=== PATIENT | female | born 1935 | race Caucasian/White ===

== ENCOUNTER 2017-08-29 09:46 | Inpatient (IN) | payer MEDICARE, OTHER ==
[~2017-08-29] VITALS: Ht 304.8 cm; Wt 53.1 kg
[2017-08-29] MEDS ORDERED: ipratropium/albuterol 3ml nebule NEB ONE (09:55)
[2017-08-29] MEDS ORDERED: methylPREDNISolone sod succ 125mg/2ml vial IV ONE (09:55)
[2017-08-29] MEDS ORDERED: CHOL2000 PO (10:19)
[2017-08-29] MEDS ORDERED: FURO-150 PO (10:19)
[2017-08-29] MEDS ORDERED: METO50TA16 PO (10:19)
[2017-08-29] MEDS ORDERED: LORA10TA7 PO (10:19)
[2017-08-29] MEDS ORDERED: lidocaine patch TOP (10:19)
[2017-08-29] MEDS ORDERED: POTA10CA44 PO (10:19)
[2017-08-29] MEDS ORDERED: OMEP40CA37 PO (10:19)
[2017-08-29] MEDS ORDERED: ASPI81TA52 PO (10:19)
[2017-08-29] MEDS ORDERED: NAPR-56 PO (10:19)
[2017-08-29] MEDS ORDERED: ACET650T11 PO (10:19)
[2017-08-29] MEDS ORDERED: ALEN70TA48 PO (10:19)
[2017-08-29] MEDS ORDERED: CALC-3 PO (10:19)
[2017-08-29] MEDS ORDERED: SYN0.088T PO (10:19)
[2017-08-29] MEDS ORDERED: [UNRECOGNIZED DRUG - CODE] (10:19)
[2017-08-29] MEDS ORDERED: GABA-530 PO (10:19)
[2017-08-29 10:22] LABS: BASOPHILS % (AUTO) 0.3 % (0-1); EOSINOPHILS % (AUTO) 0.5 % (0-6); HEMATOCRIT 34.9 % (35.0-45.0); LYMPHOCYTES # (AUTO) 1.6 X10'3 (1.1-4.8); LYMPHOCYTES % (AUTO) 17.8 % (21-51); MEAN CORPUSCULAR HEMOGLOBIN 29.6 PG (27.0-31.0); MEAN CORPUSCULAR HGB CONC 34.4 % (33.0-36.5); MEAN CORPUSCULAR VOLUME 86.1 FL (78-98); MEAN PLATELET VOLUME 6.7 FL (7.4-10.4); MONOCYTES # (AUTO) 1.1 X10'3 (0-0.9); MONOCYTES % (AUTO) 12.6 % (2-12); NEUTROPHILS # (AUTO) 6.2 X10'3 (1.8-7.7); NEUTROPHILS % (AUTO) 68.8 % (42-75); PLATELET COUNT 263 X10'3 (140-440); RED BLOOD COUNT 4.05 X10'6 (4.20-5.60); RED CELL DISTRIBUTION WIDTH 16.1 % (11.5-14.5)
[2017-08-29 10:36] LABS: PARTIAL THROMBOPLASTIN TIME 29 SECONDS (22-32); PROTHROMBIN TIME 10.5 SECONDS (9.0-12.0)
[2017-08-29 10:47] LABS: ALANINE AMINOTRANSFERASE 32 U/L (12-78); ALBUMIN 3.4 G/DL (3.4-5.0); ALBUMIN/GLOBULIN RATIO 0.9 (1.1-1.5); ALKALINE PHOSPHATASE 158 IU/L (46-116); ANION GAP 12 (8-16); ASPARTATE AMINO TRANSFERASE 34 U/L (10-37); BILIRUBIN,TOTAL 0.2 MG/DL (0.1-1.0); BLOOD UREA NITROGEN 14 MG/DL (7-18); BUN/CREATININE RATIO 17.7 (6.6-38.0); CALCIUM 8.7 MG/DL (8.5-10.1); CHLORIDE 106 MMOL/L (99-107); CREATININE 0.79 MG/DL (0.40-0.90); GLUCOSE 108 MG/DL (70-104); MAGNESIUM 1.8 MG/DL (1.5-2.4); POTASSIUM 3.4 MMOL/L (3.5-5.1); SODIUM 141 MMOL/L (135-145); TOTAL CARBON DIOXIDE 22.8 MMOL/L (24-32); TOTAL PROTEIN 7.4 G/DL (6.4-8.2); eGFR 70 ML/MIN
[2017-08-29] MEDS ORDERED: azithromycin/NS 500mg/250ml 250 ML IV ONE (10:50)
[2017-08-29] MEDS ORDERED: CefTRIAXone 2gm/D5W 50ml 50 ML IV ONE (10:50)
[2017-08-29] MEDS ORDERED: furosemide 10 MG/1 ML 10ml inj IV ONE (11:15)
[2017-08-29] MEDS ORDERED: magnesium hydroxide 30ml (MOM) UD suspension PO PRN (11:20)
[2017-08-29] MEDS ORDERED: magnesium Cl slow-release 64mg tablet PO PRN (11:20)
[2017-08-29] MEDS ORDERED: magnesium 4gm in 100ml NS 100 ML IV PRN (11:20)
[2017-08-29] MEDS: CefTRIAXone/D5W-Rocephin 1gm 50 ML IV SCH (11:20)
[2017-08-29] MEDS ORDERED: acetaminophen 325mg tablet PO PRN ×2 (11:20)
[2017-08-29] MEDS ORDERED: mag hydrox/Alum hydrox/simeth 30ml oral suspension PO PRN (11:20)
[2017-08-29] MEDS ORDERED: ipratropium/albuterol 3ml nebule NEB PRN (11:20)
[2017-08-29] MEDS ORDERED: potassium Cl 40MEQ/NS 500ml 500 ML IV PRN ×2 (11:20)
[2017-08-29] MEDS: K and/or MAG REPLACEMENT MC SCH (11:20)
[2017-08-29] MEDS ORDERED: potassium Cl 20 mEq SR tablet PO PRN (11:20)
[2017-08-29] MEDS ORDERED: magnesium 2GM in 50ml NS 50 ML IV PRN (11:20)
[2017-08-29] MEDS ORDERED: ondansetron/PF 4mg/2ml inj IV PRN (11:20)
[2017-08-29] MEDS: LIDOcaine 5% patch TP SCH (11:44)
[2017-08-29] MEDS: gabapentin 100mg capsule PO SCH ×2 (13:00→21:53)
[2017-08-29] MEDS: methylPREDNISolone sod succ 125mg/2ml vial IV SCH ×2 (13:51→21:51)
[2017-08-29] MEDS: ipratropium/albuterol 3ml nebule NEB SCH ×3 (15:20→23:00)
[2017-08-29] MEDS: metoprolol tartrate 50mg tablet PO SCH (17:20)
[2017-08-29 17:24] VITALS: BP 133/69
[2017-08-29 18:00] VITALS: BP 124/60
[2017-08-29] MEDS ORDERED: temazepam 15mg capsule PO PRN (21:00)
[2017-08-29] MEDS: furosemide 20 MG/2 ML vial IV SCH (21:51)
[2017-08-29] MEDS: potassium Cl 20 mEq SR tablet PO PRN (21:52)
[2017-08-29 22:00] VITALS: BP 130/65
[2017-08-30 02:00] VITALS: BP 131/70
[2017-08-30] MEDS: methylPREDNISolone sod succ 125mg/2ml vial IV SCH ×2 (02:58→07:51)
[2017-08-30] MEDS: potassium Cl 20 mEq SR tablet PO PRN (02:58)
[2017-08-30 05:19] LABS: BASOPHILS % (AUTO) 0.2 % (0-1); EOSINOPHILS % (AUTO) 0.7 % (0-6); HEMATOCRIT 33.8 % (35.0-45.0); HEMOGLOBIN 11.6 g/dl (12.0-16.0); LYMPHOCYTES # (AUTO) 0.6 X10'3 (1.1-4.8); LYMPHOCYTES % (AUTO) 8.6 % (21-51); MEAN CORPUSCULAR HEMOGLOBIN 30.1 PG (27.0-31.0); MEAN CORPUSCULAR HGB CONC 34.2 % (33.0-36.5); MEAN PLATELET VOLUME 6.9 FL (7.4-10.4); MONOCYTES # (AUTO) 0.2 X10'3 (0-0.9); MONOCYTES % (AUTO) 3.1 % (2-12); NEUTROPHILS # (AUTO) 5.7 X10'3 (1.8-7.7); NEUTROPHILS % (AUTO) 87.4 % (42-75); PLATELET COUNT 211 X10'3 (140-440); RED BLOOD COUNT 3.84 X10'6 (4.20-5.60); RED CELL DISTRIBUTION WIDTH 15.9 % (11.5-14.5); WHITE BLOOD COUNT 6.5 X10'3 (4.5-11.0)
[2017-08-30 05:42] LABS: ALANINE AMINOTRANSFERASE 32 U/L (12-78); ALBUMIN 3.1 G/DL (3.4-5.0); ALBUMIN/GLOBULIN RATIO 0.8 (1.1-1.5); ALKALINE PHOSPHATASE 145 IU/L (46-116); ANION GAP 9 (8-16); ASPARTATE AMINO TRANSFERASE 40 U/L (10-37); BILIRUBIN,TOTAL 0.2 MG/DL (0.1-1.0); BLOOD UREA NITROGEN 18 MG/DL (7-18); BUN/CREATININE RATIO 22.8 (6.6-38.0); CALCIUM 8.2 MG/DL (8.5-10.1); CHLORIDE 109 MMOL/L (99-107); CREATININE 0.79 MG/DL (0.40-0.90); GLUCOSE 153 MG/DL (70-104); MAGNESIUM 1.9 MG/DL (1.5-2.4); PHOSPHORUS 3.4 MG/DL (2.3-4.5); POTASSIUM 4.3 MMOL/L (3.5-5.1); SODIUM 144 MMOL/L (135-145); TOTAL CARBON DIOXIDE 25.7 MMOL/L (24-32); eGFR 70 ML/MIN
[2017-08-30 06:00] VITALS: BP 155/84
[2017-08-30] MEDS ORDERED: levoTHYROXINE 125mcg tablet PO SCH ×2 (07:00)
[2017-08-30] MEDS: ipratropium/albuterol 3ml nebule NEB SCH (07:17)
[2017-08-30] MEDS: gabapentin 100mg capsule PO SCH (07:49)
[2017-08-30] MEDS: metoprolol tartrate 50mg tablet PO SCH (07:49)
[2017-08-30] MEDS: furosemide 20 MG/2 ML vial IV SCH (07:50)
[2017-08-30] MEDS: CefTRIAXone/D5W-Rocephin 1gm 50 ML IV SCH (07:50)
[2017-08-30] MEDS ORDERED: enoxaparin 40mg/0.4ml syringe SQ SCH (08:00)
[2017-08-30] MEDS ORDERED: potassium Cl 20 mEq SR tablet PO SCH (08:00)
[2017-08-30] MEDS ORDERED: aspirin 81mg tablet.DR PO SCH (08:00)
[2017-08-30] MEDS ORDERED: pantoprazole 40mg Tablet.DR PO SCH (08:00)
[2017-08-30] MEDS: K and/or MAG REPLACEMENT MC SCH (08:00)
[2017-08-30] MEDS ORDERED: azithromycin/NS 500mg/250ml 250 ML IV SCH (08:00)
[2017-08-30] MEDS: LIDOcaine 5% patch TP SCH (08:03)
== END 2017-08-30 12:00 | disposition home health service (06) | DRG 291 ==
LOC: ER 09:47 → ED HOLD 11:16 → EDBEDREQ 16:16 → PCU 3S 17:13
PROVIDERS: ADMIT Family Medicine; ATTEND Internal Medicine
DX: I50.33 Acute on chronic diastolic (congestive) heart failure (principal); J18.9 Pneumonia, unspecified organism; J44.0 Chronic obstructive pulmonary disease with (acute) lower respiratory infection; F03.90 Unspecified dementia, unspecified severity, without behavioral disturbance, psychotic disturbance, mood disturbance, and anxiety; J20.9 Acute bronchitis, unspecified; J44.1 Chronic obstructive pulmonary disease with (acute) exacerbation; E03.9 Hypothyroidism, unspecified; F17.200 Nicotine dependence, unspecified, uncomplicated; I25.10 Atherosclerotic heart disease of native coronary artery without angina pectoris; M81.0 Age-related osteoporosis without current pathological fracture; Z66 Do not resuscitate; Z79.899 Other long term (current) drug therapy; Z79.82 Long term (current) use of aspirin; Z71.6 Tobacco abuse counseling
CPT/HCPCS: 36415; 71045; 80053; 83605; 83735; 83880; 84100; 84145; 84443; 84484; 85025; 85610; 85730; 87040; 87070; 87502; 87503; 93005; 93306; 94640; 94760; 96365; 96368; 96375; 97116; 97162; 97530; 99285; A4315; J0456; J0696; J1650; J1940; J2930; J7030

== ENCOUNTER 2017-09-01 07:53 | Inpatient (IN) | payer MEDICARE, OTHER ==
[2017-09-01] VITALS (8 sets, daily range): BP systolic 108–139; BP diastolic 52–69
[~2017-09-01] VITALS: Ht 153 cm; Wt 50.0 kg
[~2017-09-01 07:53] MED LIST: ACET650T11 PO; ASPI81TA52 PO; CALC-3 PO; CHOL2000 PO; FURO-150 PO; GABA-530 PO; LORA10TA7 PO; METO50TA16 PO; NAPR-56 PO; OMEP40CA37 PO; POTA10CA44 PO; SYN0.088T PO; [UNRECOGNIZED DRUG - CODE]; lidocaine patch TOP
[2017-09-01] MEDS ORDERED: diltiazem 5mg/ml 5ml inj. IV ONE (08:30)
[2017-09-01] MEDS ORDERED: CefTRIAXone 2gm/D5W 50ml 50 ML IV ONE (08:35)
[2017-09-01] MEDS ORDERED: vancomycin/NS 1 GM ADD-VANTAGE 250 ML IV ONE (08:35)
[2017-09-01 08:38] LABS: BASOPHILS % (AUTO) 0.3 % (0-1); EOSINOPHILS # (AUTO) 0.1 X10'3 (0-0.9); EOSINOPHILS % (AUTO) 0.7 % (0-6); LYMPHOCYTES % (AUTO) 24.2 % (21-51); MEAN CORPUSCULAR HEMOGLOBIN 29.9 PG (27.0-31.0); MEAN CORPUSCULAR HGB CONC 34.3 % (33.0-36.5); MEAN CORPUSCULAR VOLUME 87.4 FL (78-98); MEAN PLATELET VOLUME 7.2 FL (7.4-10.4); MONOCYTES # (AUTO) 0.7 X10'3 (0-0.9); NEUTROPHILS # (AUTO) 5.6 X10'3 (1.8-7.7); NEUTROPHILS % (AUTO) 66.8 % (42-75); PLATELET COUNT 223 X10'3 (140-440); RED CELL DISTRIBUTION WIDTH 16.1 % (11.5-14.5); WHITE BLOOD COUNT 8.4 X10'3 (4.5-11.0)
[2017-09-01 08:51] LABS: INR 0.9 INR; PARTIAL THROMBOPLASTIN TIME 27 SECONDS (22-32); PROTHROMBIN TIME 9.7 SECONDS (9.0-12.0)
[2017-09-01] MEDS ORDERED: verapamil 2.5 mg/ml inj IV ONE ×2 (08:55→09:15)
[2017-09-01 09:03] LABS: ALANINE AMINOTRANSFERASE 44 U/L (12-78); ALBUMIN 3.3 G/DL (3.4-5.0); ALBUMIN/GLOBULIN RATIO 0.8 (1.1-1.5); ALKALINE PHOSPHATASE 130 IU/L (46-116); ANION GAP 12 (8-16); ASPARTATE AMINO TRANSFERASE 57 U/L (10-37); BILIRUBIN,TOTAL 0.2 MG/DL (0.1-1.0); BLOOD UREA NITROGEN 23 MG/DL (7-18); BUN/CREATININE RATIO 30.7 (6.6-38.0); CALCIUM 8.7 MG/DL (8.5-10.1); CHLORIDE 107 MMOL/L (99-107); CREATININE 0.75 MG/DL (0.40-0.90); GLUCOSE 101 MG/DL (70-104); SODIUM 145 MMOL/L (135-145); TOTAL CARBON DIOXIDE 25.6 MMOL/L (24-32); TOTAL PROTEIN 7.3 G/DL (6.4-8.2); eGFR 74 ML/MIN
[2017-09-01 09:06] LABS: POTASSIUM 3.5 MMOL/L (3.5-5.1)
[2017-09-01] MEDS: verapamil 2.5 mg/ml inj IV ONE ×2 (09:19→09:22)
[2017-09-01] MEDS: diltiazem-NS 100mg/100ml 100 ML IV SCH ×4 (10:13→23:36)
[2017-09-01] MEDS ORDERED: AZIT-63 PO (11:14)
[2017-09-01] MEDS ORDERED: HYDROmorphone inj. 0.5 MG/0.5 ML DISP.SYRIN IV PRN ×2 (13:30)
[2017-09-01] MEDS ORDERED: diphenhydrAMINE 50 mg/ml inj IV PRN (13:30)
[2017-09-01] MEDS ORDERED: bisacodyl 10mg suppository rectal RC PRN (13:30)
[2017-09-01] MEDS ORDERED: magnesium hydroxide 30ml (MOM) UD suspension PO PRN (13:30)
[2017-09-01] MEDS ORDERED: ondansetron/PF 4mg/2ml inj IV PRN (13:30)
[2017-09-01] MEDS ORDERED: morphine 4 MG/ML inj SYRINge IV PRN ×2 (13:30)
[2017-09-01] MEDS ORDERED: mag hydrox/Alum hydrox/simeth 30ml oral suspension PO PRN (13:30)
[2017-09-01] MEDS ORDERED: acetaminophen 325mg tablet PO PRN ×2 (13:30)
[2017-09-01] MEDS ORDERED: HYDROcodone/acetaminophen 10/325mg tab PO PRN (13:30)
[2017-09-01] MEDS ORDERED: diphenhydrAMINE 25mg capsule PO PRN (13:30)
[2017-09-01] MEDS ORDERED: metoclopramide 5 mg/ml inj IV PRN (13:30)
[2017-09-01] MEDS ORDERED: non-formulary drug (Acetaminophen 1 TAB) PO PRN (13:40)
[2017-09-01] MEDS: normal saline 1000ml 1,000 ML IV SCH (13:59)
[2017-09-01] MEDS: CefTRIAXone/D5W-Rocephin 1gm 50 ML IV SCH (14:16)
[2017-09-01 14:19] LABS: PHOSPHORUS 2.5 MG/DL (2.3-4.5)
[2017-09-01] MEDS ORDERED: ipratropium/albuterol 3ml nebule NEB PRN (16:40)
[2017-09-01] MEDS: nicotine 21mg patch - 24 hr TD SCH (17:56)
[2017-09-01] MEDS ORDERED: temazepam 15mg capsule PO PRN (21:00)
[2017-09-01] MEDS: gabapentin 100mg capsule PO SCH (21:22)
[2017-09-01] MEDS: docusate sod 100mg capsule PO SCH (21:22)
[2017-09-01] MEDS: enoxaparin 30mg/0.3ml syringe SQ SCH (21:23)
[2017-09-01] MEDS ORDERED: diltiazem-NS 100mg/100ml 100 ML IV SCH (23:48)
[2017-09-02] VITALS (8 sets, daily range): BP systolic 118–143; BP diastolic 53–77
[2017-09-02] MEDS: HYDROcodone/acetaminophen 5mg/325mg tablet PO PRN ×2 (01:53→17:07)
[2017-09-02 05:55] LABS: ALANINE AMINOTRANSFERASE 38 U/L (12-78); ALBUMIN 2.8 G/DL (3.4-5.0); ALBUMIN/GLOBULIN RATIO 0.8 (1.1-1.5); ALKALINE PHOSPHATASE 113 IU/L (46-116); ANION GAP 11 (8-16); ASPARTATE AMINO TRANSFERASE 40 U/L (10-37); BILIRUBIN,TOTAL 0.4 MG/DL (0.1-1.0); BLOOD UREA NITROGEN 12 MG/DL (7-18); BUN/CREATININE RATIO 21.4 (6.6-38.0); CALCIUM 7.8 MG/DL (8.5-10.1); CHLORIDE 107 MMOL/L (99-107); CREATININE 0.56 MG/DL (0.40-0.90); GLUCOSE 97 MG/DL (70-104); SODIUM 143 MMOL/L (135-145); TOTAL CARBON DIOXIDE 25.1 MMOL/L (24-32); TOTAL PROTEIN 6.4 G/DL (6.4-8.2); eGFR > 90 ML/MIN
[2017-09-02 06:03] LABS: BASOPHILS % (AUTO) 0.3 % (0-1); EOSINOPHILS % (AUTO) 0.1 % (0-6); HEMOGLOBIN 10.8 g/dl (12.0-16.0); LYMPHOCYTES # (AUTO) 1.2 X10'3 (1.1-4.8); LYMPHOCYTES % (AUTO) 17.4 % (21-51); MEAN CORPUSCULAR HEMOGLOBIN 30.3 PG (27.0-31.0); MEAN CORPUSCULAR VOLUME 86.7 FL (78-98); MONOCYTES # (AUTO) 0.7 X10'3 (0-0.9); MONOCYTES % (AUTO) 10.5 % (2-12); NEUTROPHILS # (AUTO) 4.9 X10'3 (1.8-7.7); NEUTROPHILS % (AUTO) 71.7 % (42-75); PLATELET COUNT 185 X10'3 (140-440); RED BLOOD COUNT 3.57 X10'6 (4.20-5.60); RED CELL DISTRIBUTION WIDTH 14.9 % (11.5-14.5); WHITE BLOOD COUNT 6.8 X10'3 (4.5-11.0)
[2017-09-02 06:45] LABS: POTASSIUM 2.9 MMOL/L (3.5-5.1)
[2017-09-02] MEDS ORDERED: diltiazem-NS 100mg/100ml 100 ML IV SCH ×2 (06:48→06:51)
[2017-09-02] MEDS ORDERED: magnesium 2GM in 50ml NS 50 ML IV PRN (07:00)
[2017-09-02] MEDS ORDERED: magnesium 4gm in 100ml NS 100 ML IV PRN (07:00)
[2017-09-02] MEDS ORDERED: magnesium Cl slow-release 64mg tablet PO PRN (07:00)
[2017-09-02] MEDS ORDERED: potassium Cl 20 mEq SR tablet PO PRN (07:00)
[2017-09-02] MEDS ORDERED: potassium Cl 40MEQ/NS 500ml 500 ML IV PRN ×2 (07:00)
[2017-09-02] MEDS: potassium Cl 20 mEq SR tablet PO PRN ×3 (07:31→21:57)
[2017-09-02] MEDS: calcium carbonate/vitamin D3 tablet PO SCH (07:31)
[2017-09-02] MEDS: gabapentin 100mg capsule PO SCH ×3 (07:33→21:57)
[2017-09-02] MEDS: azithromycin 250mg tablet PO SCH (07:34)
[2017-09-02] MEDS: aspirin 81mg tablet.DR PO SCH (07:34)
[2017-09-02] MEDS: loratadine 10mg tablet PO SCH (07:35)
[2017-09-02] MEDS: vitamin D (cholecalciferol) 1,000 unit tablet PO SCH (07:36)
[2017-09-02] MEDS: CefTRIAXone/D5W-Rocephin 1gm 50 ML IV SCH (07:36)
[2017-09-02] MEDS: nicotine 21mg patch - 24 hr TD SCH (07:36)
[2017-09-02] MEDS: LIDOcaine 5% patch TP SCH (07:37)
[2017-09-02] MEDS: pantoprazole 40mg Tablet.DR PO SCH (07:37)
[2017-09-02] MEDS: enoxaparin 30mg/0.3ml syringe SQ SCH ×2 (07:39→21:58)
[2017-09-02] MEDS: docusate sod 100mg capsule PO SCH ×2 (08:00→21:56)
[2017-09-02] MEDS ORDERED: levoTHYROXINE 125mcg tablet PO SCH (08:00)
[2017-09-02] MEDS ORDERED: diltiazem 30mg tablet PO ONE (08:05)
[2017-09-02 10:00] LABS: C DIFF ANTIGEN NEGATIVE (NEGATIVE); C DIFF SPECIMEN=DIARRHEA? ACCEPTABLE; C DIFFICILE TOXINS A&B NEGATIVE (Neg)
[2017-09-02 11:26] LABS: CRYPTOSPORIDIUM AG NEGATIVE (Neg); GIARDIA LAMBLIA AG NEGATIVE (Neg)
[2017-09-02] MEDS: lactobacillus rhamnosus 10,000 MMU CELLS/CAPSULE PO SCH (21:57)
[2017-09-02] MEDS: metoprolol tartrate 12.5mg (1/2 tablet) PO SCH (21:57)
[2017-09-02] MEDS: normal saline 1000ml 1,000 ML IV SCH (21:58)
[2017-09-03 02:00] VITALS: BP 139/72
[2017-09-03 05:28] LABS: BASOPHILS % (AUTO) 0.2 % (0-1); EOSINOPHILS # (AUTO) 0.1 X10'3 (0-0.9); EOSINOPHILS % (AUTO) 1.1 % (0-6); HEMATOCRIT 34.9 % (35.0-45.0); LYMPHOCYTES # (AUTO) 1.2 X10'3 (1.1-4.8); LYMPHOCYTES % (AUTO) 12.8 % (21-51); MEAN CORPUSCULAR HEMOGLOBIN 30.2 PG (27.0-31.0); MEAN CORPUSCULAR HGB CONC 34.4 % (33.0-36.5); MEAN CORPUSCULAR VOLUME 87.9 FL (78-98); MEAN PLATELET VOLUME 7.5 FL (7.4-10.4); MONOCYTES % (AUTO) 10.5 % (2-12); NEUTROPHILS # (AUTO) 6.8 X10'3 (1.8-7.7); NEUTROPHILS % (AUTO) 75.4 % (42-75); PLATELET COUNT 219 X10'3 (140-440); RED BLOOD COUNT 3.97 X10'6 (4.20-5.60); RED CELL DISTRIBUTION WIDTH 16.1 % (11.5-14.5); WHITE BLOOD COUNT 9.1 X10'3 (4.5-11.0)
[2017-09-03 06:00] VITALS: BP 151/77
[2017-09-03 06:03] LABS: ALANINE AMINOTRANSFERASE 40 U/L (12-78); ALBUMIN 2.8 G/DL (3.4-5.0); ALBUMIN/GLOBULIN RATIO 0.7 (1.1-1.5); ALKALINE PHOSPHATASE 129 IU/L (46-116); ANION GAP 10 (8-16); ASPARTATE AMINO TRANSFERASE 35 U/L (10-37); BILIRUBIN,TOTAL 0.4 MG/DL (0.1-1.0); BLOOD UREA NITROGEN 7 MG/DL (7-18); CALCIUM 8.2 MG/DL (8.5-10.1); CHLORIDE 107 MMOL/L (99-107); GLUCOSE 105 MG/DL (70-104); MAGNESIUM 1.7 MG/DL (1.5-2.4); POTASSIUM 4.1 MMOL/L (3.5-5.1); SODIUM 141 MMOL/L (135-145); TOTAL CARBON DIOXIDE 24.1 MMOL/L (24-32); TOTAL PROTEIN 6.9 G/DL (6.4-8.2); eGFR 80 ML/MIN
[2017-09-03] MEDS: enoxaparin 30mg/0.3ml syringe SQ SCH ×2 (08:13→20:10)
[2017-09-03] MEDS: LIDOcaine 5% patch TP SCH (08:15)
[2017-09-03] MEDS: CefTRIAXone/D5W-Rocephin 1gm 50 ML IV SCH (08:15)
[2017-09-03] MEDS: calcium carbonate/vitamin D3 tablet PO SCH (08:16)
[2017-09-03] MEDS: nicotine 21mg patch - 24 hr TD SCH (08:16)
[2017-09-03] MEDS: lactobacillus rhamnosus 10,000 MMU CELLS/CAPSULE PO SCH ×2 (08:16→20:10)
[2017-09-03] MEDS: metoprolol tartrate 12.5mg (1/2 tablet) PO SCH ×2 (08:16→20:10)
[2017-09-03] MEDS: loratadine 10mg tablet PO SCH (08:17)
[2017-09-03] MEDS: azithromycin 250mg tablet PO SCH (08:17)
[2017-09-03] MEDS: gabapentin 100mg capsule PO SCH ×3 (08:17→20:10)
[2017-09-03] MEDS: docusate sod 100mg capsule PO SCH ×2 (08:17→18:52)
[2017-09-03] MEDS: vitamin D (cholecalciferol) 1,000 unit tablet PO SCH (08:18)
[2017-09-03] MEDS: pantoprazole 40mg Tablet.DR PO SCH (08:18)
[2017-09-03] MEDS: aspirin 81mg tablet.DR PO SCH (08:18)
[2017-09-03 11:00] VITALS: BP 138/75
[2017-09-03 15:00] VITALS: BP 157/84
[2017-09-03 18:00] VITALS: BP 145/76
[2017-09-03 22:00] VITALS: BP 139/75
[2017-09-04 02:00] VITALS: BP 150/84
[2017-09-04 06:00] VITALS: BP 138/82
[2017-09-04 06:37] LABS: BASOPHILS % (AUTO) 0.5 % (0-1); EOSINOPHILS # (AUTO) 0.1 X10'3 (0-0.9); EOSINOPHILS % (AUTO) 1.2 % (0-6); HEMATOCRIT 36.1 % (35.0-45.0); HEMOGLOBIN 12.4 g/dl (12.0-16.0); LYMPHOCYTES # (AUTO) 1.3 X10'3 (1.1-4.8); LYMPHOCYTES % (AUTO) 13.2 % (21-51); MEAN CORPUSCULAR HEMOGLOBIN 29.8 PG (27.0-31.0); MEAN CORPUSCULAR HGB CONC 34.4 % (33.0-36.5); MEAN CORPUSCULAR VOLUME 86.6 FL (78-98); MEAN PLATELET VOLUME 6.9 FL (7.4-10.4); MONOCYTES # (AUTO) 0.9 X10'3 (0-0.9); MONOCYTES % (AUTO) 9.5 % (2-12); NEUTROPHILS # (AUTO) 7.3 X10'3 (1.8-7.7); NEUTROPHILS % (AUTO) 75.6 % (42-75); PLATELET COUNT 278 X10'3 (140-440); RED BLOOD COUNT 4.17 X10'6 (4.20-5.60); RED CELL DISTRIBUTION WIDTH 15.6 % (11.5-14.5); WHITE BLOOD COUNT 9.7 X10'3 (4.5-11.0)
[2017-09-04 06:59] LABS: ALANINE AMINOTRANSFERASE 31 U/L (12-78); ALBUMIN 2.6 G/DL (3.4-5.0); ALBUMIN/GLOBULIN RATIO 0.6 (1.1-1.5); ALKALINE PHOSPHATASE 134 IU/L (46-116); ANION GAP 11 (8-16); ASPARTATE AMINO TRANSFERASE 27 U/L (10-37); BILIRUBIN,TOTAL 0.5 MG/DL (0.1-1.0); BLOOD UREA NITROGEN 12 MG/DL (7-18); BUN/CREATININE RATIO 15.6 (6.6-38.0); CALCIUM 8.6 MG/DL (8.5-10.1); CHLORIDE 105 MMOL/L (99-107); CREATININE 0.77 MG/DL (0.40-0.90); GLUCOSE 98 MG/DL (70-104); MAGNESIUM 1.8 MG/DL (1.5-2.4); POTASSIUM 3.6 MMOL/L (3.5-5.1); SODIUM 140 MMOL/L (135-145); TOTAL CARBON DIOXIDE 23.6 MMOL/L (24-32); TOTAL PROTEIN 6.9 G/DL (6.4-8.2); eGFR 72 ML/MIN
[2017-09-04] MEDS: azithromycin 250mg tablet PO SCH (08:30)
[2017-09-04] MEDS: docusate sod 100mg capsule PO SCH ×2 (08:30→19:16)
[2017-09-04] MEDS: aspirin 81mg tablet.DR PO SCH (08:30)
[2017-09-04] MEDS: calcium carbonate/vitamin D3 tablet PO SCH (08:30)
[2017-09-04] MEDS: CefTRIAXone/D5W-Rocephin 1gm 50 ML IV SCH (08:30)
[2017-09-04] MEDS: vitamin D (cholecalciferol) 1,000 unit tablet PO SCH (08:30)
[2017-09-04] MEDS: enoxaparin 30mg/0.3ml syringe SQ SCH ×2 (08:31→20:25)
[2017-09-04] MEDS: lactobacillus rhamnosus 10,000 MMU CELLS/CAPSULE PO SCH ×2 (08:37→20:24)
[2017-09-04] MEDS: gabapentin 100mg capsule PO SCH ×3 (08:37→20:24)
[2017-09-04] MEDS: loratadine 10mg tablet PO SCH (08:37)
[2017-09-04] MEDS: metoprolol tartrate 12.5mg (1/2 tablet) PO SCH (08:37)
[2017-09-04] MEDS: LIDOcaine 5% patch TP SCH (08:37)
[2017-09-04] MEDS: nicotine 21mg patch - 24 hr TD SCH (08:45)
[2017-09-04] MEDS: pantoprazole 40mg Tablet.DR PO SCH (08:47)
[2017-09-04] MEDS: metoprolol tartrate 25mg tablet PO SCH ×2 (10:28→20:24)
[2017-09-04] MEDS: chloestyramine/aspartame 4gm packet PO SCH ×2 (10:28→11:00)
[2017-09-04 11:00] VITALS: BP 134/71
[2017-09-04 15:00] VITALS: BP 134/63
[2017-09-04 18:00] VITALS: BP 146/83
[2017-09-04 22:00] VITALS: BP 157/77
[2017-09-05 02:00] VITALS: BP 148/76
[2017-09-05 06:00] VITALS: BP 139/74
[2017-09-05 06:06] LABS: BASOPHILS % (AUTO) 0.2 % (0-1); EOSINOPHILS # (AUTO) 0.2 X10'3 (0-0.9); EOSINOPHILS % (AUTO) 1.4 % (0-6); HEMATOCRIT 34.4 % (35.0-45.0); LYMPHOCYTES % (AUTO) 8.7 % (21-51); MEAN CORPUSCULAR HGB CONC 34.9 % (33.0-36.5); MEAN CORPUSCULAR VOLUME 86.2 FL (78-98); MEAN PLATELET VOLUME 7.3 FL (7.4-10.4); MONOCYTES # (AUTO) 1.3 X10'3 (0-0.9); MONOCYTES % (AUTO) 11.2 % (2-12); NEUTROPHILS # (AUTO) 8.8 X10'3 (1.8-7.7); NEUTROPHILS % (AUTO) 78.5 % (42-75); PLATELET COUNT 301 X10'3 (140-440); RED BLOOD COUNT 3.99 X10'6 (4.20-5.60); WHITE BLOOD COUNT 11.2 X10'3 (4.5-11.0)
[2017-09-05 06:54] LABS: ALANINE AMINOTRANSFERASE 28 U/L (12-78); ALBUMIN 2.6 G/DL (3.4-5.0); ALBUMIN/GLOBULIN RATIO 0.6 (1.1-1.5); ALKALINE PHOSPHATASE 129 IU/L (46-116); ANION GAP 14 (8-16); ASPARTATE AMINO TRANSFERASE 21 U/L (10-37); BILIRUBIN,TOTAL 0.4 MG/DL (0.1-1.0); BLOOD UREA NITROGEN 13 MG/DL (7-18); BUN/CREATININE RATIO 19.7 (6.6-38.0); CALCIUM 9.7 MG/DL (8.5-10.1); CHLORIDE 104 MMOL/L (99-107); CREATININE 0.66 MG/DL (0.40-0.90); GLUCOSE 112 MG/DL (70-104); MAGNESIUM 1.8 MG/DL (1.5-2.4); POTASSIUM 3.6 MMOL/L (3.5-5.1); SODIUM 138 MMOL/L (135-145); TOTAL CARBON DIOXIDE 19.9 MMOL/L (24-32); TOTAL PROTEIN 7.1 G/DL (6.4-8.2); eGFR 86 ML/MIN
[2017-09-05] MEDS: pantoprazole 40mg Tablet.DR PO SCH (07:31)
[2017-09-05] MEDS: vitamin D (cholecalciferol) 1,000 unit tablet PO SCH (07:31)
[2017-09-05] MEDS: lactobacillus rhamnosus 10,000 MMU CELLS/CAPSULE PO SCH (07:31)
[2017-09-05] MEDS: metoprolol tartrate 25mg tablet PO SCH (07:32)
[2017-09-05] MEDS: aspirin 81mg tablet.DR PO SCH (07:32)
[2017-09-05] MEDS: calcium carbonate/vitamin D3 tablet PO SCH (07:32)
[2017-09-05] MEDS: azithromycin 250mg tablet PO SCH (07:32)
[2017-09-05] MEDS: loratadine 10mg tablet PO SCH (07:32)
[2017-09-05] MEDS: gabapentin 100mg capsule PO SCH ×2 (07:32→13:00)
[2017-09-05] MEDS: CefTRIAXone/D5W-Rocephin 1gm 50 ML IV SCH (07:33)
[2017-09-05] MEDS: enoxaparin 30mg/0.3ml syringe SQ SCH (07:33)
[2017-09-05] MEDS: nicotine 21mg patch - 24 hr TD SCH (07:34)
[2017-09-05] MEDS: docusate sod 100mg capsule PO SCH (07:34)
[2017-09-05] MEDS: LIDOcaine 5% patch TP SCH (07:35)
[2017-09-05 11:00] VITALS: BP 121/66
[2017-09-05] MEDS: chloestyramine/aspartame 4gm packet PO SCH (11:00)
[2017-09-05] MEDS: normal saline 1000ml 1,000 ML IV SCH (13:28)
[2017-09-05] MEDS ORDERED: ALB0.5UD IH (14:33)
[2017-09-05] MEDS ORDERED: LEVO500T2 PO (14:33)
[2017-09-05 15:00] VITALS: BP 136/65
== END 2017-09-05 17:15 | disposition home health service (06) | DRG 177 ==
LOC: ER 07:53 → PCU 3S 14:51 → CMPBEDREQ 20:34 → PCU 3S 09-02 05:02
PROVIDERS: ADMIT Family Medicine; ATTEND Family Medicine
PROC: BW251ZZ Computerized Tomography (CT Scan) of Chest, Abdomen and Pelvis using Low Osmolar Contrast (ICD-10-PCS; principal; 2017-09-01)
DX: J69.0 Pneumonitis due to inhalation of food and vomit (principal); I50.33 Acute on chronic diastolic (congestive) heart failure; R06.03 Acute respiratory distress; I48.91 Unspecified atrial fibrillation; E05.90 Thyrotoxicosis, unspecified without thyrotoxic crisis or storm; J44.0 Chronic obstructive pulmonary disease with (acute) lower respiratory infection; J44.1 Chronic obstructive pulmonary disease with (acute) exacerbation; F03.90 Unspecified dementia, unspecified severity, without behavioral disturbance, psychotic disturbance, mood disturbance, and anxiety; E87.6 Hypokalemia; R09.02 Hypoxemia; E03.9 Hypothyroidism, unspecified; I25.10 Atherosclerotic heart disease of native coronary artery without angina pectoris; G89.29 Other chronic pain; M54.9 Dorsalgia, unspecified; F17.200 Nicotine dependence, unspecified, uncomplicated; Z66 Do not resuscitate; Z79.899 Other long term (current) drug therapy; Z79.82 Long term (current) use of aspirin
CPT/HCPCS: 36415; 71045; 71250; 74176; 80053; 83605; 83735; 83880; 84100; 84145; 84439; 84443; 84484; 85025; 85379; 85610; 85730; 87040; 87045; 87046; 87070; 87324; 87328; 87329; 87336; 87449; 93005; 94760; 96365; 96367; 96368; 96375; 99291; A4315; A6250; J0696; J1650; J3370; J3490; J7030